=== PATIENT | male | born 1995 | race Caucasian/White ===

== ENCOUNTER 2020-09-01 16:44 | Inpatient (IN) | payer BC, SELFPAY ==
[2020-09-01 17:48] VITALS: BP 140/74; PULSE 129; RESP 28; TEMP 39.4; O2SAT 86; BMI 48.0
--- NOTE | 2020-09-01 18:03 | XRR_ITS ---
PROCEDURE INFORMATION: Exam: XR Chest Exam date and time: 09/01/2020 6:03 PM Age: 24 years old Clinical indication: Shortness of breath; Additional info: SOB TECHNIQUE: Imaging protocol: XR of the chest. Views: 1 view. Total images: 1 COMPARISON: No relevant prior studies available. FINDINGS: Lungs: Poor inspiratory effort. Bilateral mixed ground-glass interstitial and early consolidated alveolar airspace disease of active pneumonitis/pneumonia. Pleural spaces: Unremarkable. No pleural effusion. No pneumothorax. Heart/Mediastinum: Cardiac structures and configuration unremarkable. Bones/joints: Unremarkable. Other findings: Obesity. XR/XR chest 1V portable [id number] IMPRESSION: Bilateral pneumonitis/pneumonia.
[2020-09-01 18:59] LABS: ABG PCO2 31.3 mmHg (35-45); ABG PH Result 7.48 (7.35-7.45); Arterial Blood Gas Hematocrit 45.7 % (42-52); Base Excess ABG 0.9 mmol/L (-2.0-2.0); Blood Gas Allen Test Pos; Blood Gas Operator Identificat AMH; Blood Gas Sample Site Radial, left; Blood Gas Sample Type Arterial; HCO3 ABG 23.5 mmol/L (22-26); Oxygen Device NC; PO2 ABG 65.8 mmHg (80.0-100.0)
[2020-09-01 20:17] VITALS: BP 136/79; PULSE 126; RESP 24; O2SAT 95
[2020-09-01 20:20] VITALS: O2SAT 95
[2020-09-01 20:32] LABS: Basophils % 0.1 %; Hematocrit 44.5 % (42.0-52.0); Hemoglobin 14.7 g/dL (11.7-16.6); Lymphocytes # 1.3 10^3/uL (0.8-4.8); Lymphocytes % 13.8 %; Mean Corpuscular Hemoglobin 29.7 pg (28.0-34.0); Mean Corpuscular Volume 89.9 fL (80-94); Mean Platelet Volume 10.1 fL (7.4-10.4); Monocytes # 0.3 10^3/uL (0.2-0.9); Monocytes % 3.5 %; Neutrophils # 7.42 10^3/uL (1.8-7.7); Neutrophils % 82.3 %; Nucleated Red Blood Cells % 0 %; Platelet Count 300 10^3/cmm (130-400); Red Blood Count 4.95 10^6/uL (4.1-5.3); Red Cell Distribution Width 12.3 % (12.1-15.1)
[2020-09-01 20:48] LABS: Alanine Aminotransferase 47 U/L (0-41); Alkaline Phosphatase 35 IU/L (40-130); Anion Gap 16.9 (5-19); Aspartate Amino Transferase 53 U/L (0-40); Blood Urea Nitrogen 8 mg/dL (6-20); C Reactive Protein 32.2 mg/L (0.0-4.9); Carbon Dioxide 24 mmol/L (22-29); Chloride 99 mmol/L (98-107); Globulin 2.4 g/dL (1.3-4.6); Glomerular Filtration Rate 105.5 mL/min (90-130); Glucose 105 mg/dL (65-115); Lactic Sepsis W/Reflex 1.3 mmol/L (0.5-2.2); Osmolality Calculated 281 mOsm/kg (285-295); Potassium 3.9 mmol/L (3.5-5.1); Sodium 136 mmol/L (136-145); Total Bilirubin 0.3 mg/dL (0.15-1.2); Total Protein 6.4 g/dL (6.6-8.7)
[2020-09-01 20:51] LABS: Creatine Phosphokinase 1343 U/L (39-308)
[2020-09-01 20:54] LABS: Procalcitonin 0.47 ng/mL (0-0.5)
[2020-09-01 21:16] LABS: Influenza A by IFA Negative (Negative); Influenza B by IFA Negative (Negative)
[2020-09-01 21:16] LABS: SARS Covid-2 Antigen Negative (Negative)
[2020-09-01 22:31] VITALS: BP 147/76; PULSE 123; RESP 22; O2SAT 94
[2020-09-01] MEDS: acetaminophen 325 mg Tablet 650 MG PO (22:44)
[2020-09-01] MEDS: dexamethasone 4 mg/mL INJ 6 MG IVP (22:45)
[2020-09-01] MEDS: sodium chloride 0.9% 1,000 ML 999 ML IV (22:57)
--- NOTE | 2020-09-01 23:54 | ED_ITS ---
HPI - COVID General: Chief Complaint: COVID symptoms Stated Complaint: COVID EXPOSURE:COUGH, DIFF BREATHING Time Seen by Provider: 09/01/20 17:54 Source: patient Mode of arrival: ambulatory Limitations: no limitations Triage information: Has fever, cough or shortness of breath . Exposure to COVID + person last 14 days History of Present Illness: HPI Narrative: Symptoms have been ongoing for about 6 days. Mother has Covid. Patient states that his been having fevers, body aches, and progressively worsening shortness of breath over the last 6 days. He has some nausea but no vomiting. He has lost his appetite. He has been taking [id number] medication but is not getting any better. MD complaint: reported COVID exposure Prior covid testing: no COVID 19 common symptoms: positive fever(s), chills, cough, dyspnea, fatigue, body aches, headache(s), nasal congestion and nausea; negative vomiting COVID 19 other sytmptoms: positive requiring oxygen and lethargy; negative chest pain, pleuritic pain, requiring more oxygen, respiratory distress, cyanosis, confusion or new neurological complaints Onset (ago): day(s) (6) Severity: severe COVID Results: SARS-CoV-2 Antigen (Rapid) Negative (Negative) 09/01/20 20:00 09/01/20 SARS-CoV-2 RNA (RT-PCR) Pending 09/01/20 20:00 09/01/20 Review of Systems General: Reports: 10 or more systems reviewed and unremarkable except in HPI and below Const: Reports: fever(s), chills, body aches and fatigue ENMT: Reports: nasal congestion Card: Denies: chest pain Resp: Reports: dyspnea GI: Reports: nausea; Denies: vomiting Neuro: Reports: headache(s); Denies: confusion PFSH ED PFSH: Medical History (Reviewed 09/02/20 @ 13:24 by Preethi Leo MD, [facility] [place]) Obesity, Class III, BMI 40-49.9 (morbid obesity) Family History (Reviewed 09/02/20 @ 13:24 by Preethi Leo MD, [facility] [place]) Other COVID-19 Social History (Reviewed 09/02/20 @ 13:24 by Preethi Leo MD, [facility] [place]) Smoking and tobacco status: never smoked Alcohol intake: never Substance/Drug Use: never Household members: family Physical Exam Const: COMMON NORMALS: no acute distress, average body habitus, patient oriented x3, no limitations, healthy appearing, alert and well nourished HENMT: COMMON NORMALS: normocephalic, atraumatic and moist oral mucous membranes HEAD & SCALP: normocephalic and atraumatic Neck/C-Spine: COMMON NORMALS: no meningeal signs and no JVD Resp: COMMON NORMALS: No retractions, No use of accessory muscles, clear to auscultation bilaterally and percussion normal EFFORT & INSPECTION: Yes tachypneic and Yes labored AUSCULTATION: clear to auscultation bilaterally PERCUSSION: percussion normal Cardio: COMMON NORMALS: no JVD, regular rate, regular rhythm, S1 normal heart sound present, S2 normal heart sound present, No gallops present (Cardio), No clicks present (Cardio), No murmurs present (Cardio), No rub (Cardio) and Peripheral pulses 2+ throughout RATE: regular rate RHYTHM: regular rhythm HEART SOUNDS: S1 normal heart sound present and S2 normal heart sound present PERIPHERAL PULSES: Peripheral pulses 2+ throughout GI: COMMON NORMALS: Normal to inspection, nondistended, normoactive bowel sounds present, Soft to palpation, non-tender, No hepatosplenomegaly present, no masses and no bruits PALPATION: Yes Soft to palpation and Yes No hepatosplenomegaly present Extremity: COMMON NORMALS: normal to inspection, full ROM, capillary refill normal, no calf tenderness and no pedal edema Neuro: COMMON NORMALS: patient oriented x3 SENSORIUM/ORIENTATION: Yes alert MENINGEAL SIGNS: Yes no meningeal signs Skin: COMMON NORMALS: no rashes or lesions noted, no wounds, turgor normal, no jaundice, no petechiae and no mottling GENERAL SKIN EXAM: no rashes or lesions noted and turgor normal Course Consultations: Consultation #1: Discussed the patient with Dr. Kam, hospitalist and she kindly accepted the patient to her service. Time: 23:00 Vital Signs: Vital signs: Vital Signs Temperature 97.6 F 09/02/20 08:00 Pulse Rate 108 H 09/02/20 10:00 Respiratory Rate 22 H 09/02/20 09:47 Blood Pressure 153/96 09/02/20 10:00 Pulse Oximetry 91 07/11/21 10:00 MDM - COVID MDM Narrative: Medical decision making narrative: This 24-year-old male had a Covid exposure and has been feeling unwell for about 6 days in the emergency department he was hypoxic with oxygen saturation about 86% on room air and required oxygen at 3 L/min to maintain his saturations. Chest x-ray shows diffuse bilateral opacities consistent with COVID-19 pneumonia. Laboratory values also suggestive of Covid, however his rapid Covid test was negative. Clinically I believe this patient has Covid and so he will be managed as such. There is a high prevalence of the infection in the community. He will be started on remdesivir and dexamethasone and admitted to the cardiac stepdown unit for further evaluation and management. Medical Records: Attestation: I reviewed the patient's medical records. Lab Data: Attestation: I reviewed the patient's lab results. Labs: Lab Results 09/01/20 09/01/20 09/01/20 Range/Units 18:47 20:00 20:00 WBC (4.0-10.0) 10^3/ uL RBC (4.1-5.3) 10^6/u L Hgb (11.7-16.6) g/dL Hct (42.0-52.0) % MCV (80-94) fL MCH (28.0-34.0) pg MCHC (30.0-36.0) g/dL RDW (12.1-15.1) % Plt Count (130-400) 10^3/c mm MPV (7.4-10.4) fL Neut % (Auto) % Lymph % (Auto) % [place] % (Auto) % Eos % (Auto) % Baso % (Auto) % Neut # (Auto) (1.8-7.7) 10^3/u L Lymph # (Auto) (0.8-4.8) 10^3/u L [place] # (Auto) (0.2-0.9) 10^3/u L Eos # (Auto) (0.0-0.8) 10^3/u L Baso # (Auto) (0.0-0.1) 10^3/u L Nucleated RBC % (a uto) % Nucleated RBCs # /100WBC D-Dimer 0.70 H (0-0.59) ug/mIFE U Specimen Type Arterial Sample Site Radial, left ABG pH 7.48 H (7.35-7.45) ABG pCO2 31.3 L (35-45) mmHg ABG pO2 65.8 L (80.0-100.0) mmH g ABG HCO3 23.5 (22-26) mmol/L ABG Base Excess 0.9 (-2.0-2.0) mmol/ L Gabo Test Pos Hematocrit 45.7 (42-52) % O2 Delivery Device Nc O2 Liters/Min 2.0 % FiO2 28.0 % Bobbin Loose End Finder ID Amh Sodium 136 (136-145) mmol/L Potassium 3.9 (3.5-5.1) mmol/L Chloride 99 (98-107) mmol/L Carbon Dioxide 24 (22-29) mmol/L Anion Gap 16.9 (5-19) BUN 8 (6-20) mg/dL Creatinine 0.9 (0.7-1.2) mg/dL GFR Calculation 105.5 (90-130) mL/min Glucose 105 (65-115) mg/dL Calculated Osmolal ity 281 L (285-295) mOsm/k g Lactic Acid (0.5-2.2) mmol/L Calcium 8.0 L (8.5-10.5) mg/dL Ferritin (30-400) ng/mL Total Bilirubin 0.3 (0.15-1.2) mg/dL AST 53 H (0-40) U/L ALT 47 H (0-41) U/L Alkaline Phosphata se 35 L (40-130) IU/L Lactate Dehydrogen ase (135-225) U/L Creatine Kinase 1343 H* (39-308) U/L C-Reactive Protein 32.2 H (0.0-4.9) mg/L Total Protein 6.4 L (6.6-8.7) g/dL Albumin 4.0 (3.5-5.2) g/dL Globulin 2.4 (1.3-4.6) g/dL Procalcitonin 0.47 (0-0.5) ng/mL Nasal/Oral COVID-1 9 PCR Influenza Type A A g (Negative) Influenza Type B A g (Negative) SARS-CoV-2 Ag (Rap id) (Negative) 09/01/20 09/01/20 09/01/20 Range/Units 20:00 20:00 20:00 WBC 9.0 (4.0-10.0) 10^3/ uL RBC 4.95 (4.1-5.3) 10^6/u L Hgb 14.7 (11.7-16.6) g/dL Hct 44.5 (42.0-52.0) % MCV 89.9 (80-94) fL MCH 29.7 (28.0-34.0) pg MCHC 33.0 (30.0-36.0) g/dL RDW 12.3 (12.1-15.1) % Plt Count 300 (130-400) 10^3/c mm MPV 10.1 (7.4-10.4) fL Neut % (Auto) 82.3 % Lymph % (Auto) 13.8 % [place] % (Auto) 3.5 % Eos % (Auto) 0.0 % Baso % (Auto) 0.1 % Neut # (Auto) 7.42 (1.8-7.7) 10^3/u L Lymph # (Auto) 1.3 (0.8-4.8) 10^3/u L [place] # (Auto) 0.3 (0.2-0.9) 10^3/u L Eos # (Auto) 0.0 (0.0-0.8) 10^3/u L Baso # (Auto) 0.0 (0.0-0.1) 10^3/u L Nucleated RBC % (a uto) 0 % Nucleated RBCs # 0.0 /100WBC D-Dimer (0-0.59) ug/mIFE U Specimen Type Sample Site ABG pH (7.35-7.45) ABG pCO2 (35-45) mmHg ABG pO2 (80.0-100.0) mmH g ABG HCO3 (22-26) mmol/L ABG Base Excess (-2.0-2.0) mmol/ L Gabo Test Hematocrit (42-52) % O2 Delivery Device O2 Liters/Min % FiO2 % Bobbin Loose End Finder ID Sodium (136-145) mmol/L Potassium (3.5-5.1) mmol/L Chloride (98-107) mmol/L Carbon Dioxide (22-29) mmol/L Anion Gap (5-19) BUN (6-20) mg/dL Creatinine (0.7-1.2) mg/dL GFR Calculation (90-130) mL/min Glucose (65-115) mg/dL Calculated Osmolal ity (285-295) mOsm/k g Lactic Acid 1.3 (0.5-2.2) mmol/L Calcium (8.5-10.5) mg/dL Ferritin (30-400) ng/mL Total Bilirubin (0.15-1.2) mg/dL AST (0-40) U/L ALT (0-41) U/L Alkaline Phosphata se (40-130) IU/L Lactate Dehydrogen ase (135-225) U/L Creatine Kinase (39-308) U/L C-Reactive Protein (0.0-4.9) mg/L Total Protein (6.6-8.7) g/dL Albumin (3.5-5.2) g/dL Globulin (1.3-4.6) g/dL Procalcitonin (0-0.5) ng/mL Nasal/Oral COVID-1 9 PCR Cancelled Influenza Type A A g (Negative) Influenza Type B A g (Negative) SARS-CoV-2 Ag (Rap id) (Negative) 09/01/20 09/01/20 09/01/20 Range/Units 20:00 20:00 20:15 WBC (4.0-10.0) 10^3/ uL RBC (4.1-5.3) 10^6/u L Hgb (11.7-16.6) g/dL Hct (42.0-52.0) % MCV (80-94) fL MCH (28.0-34.0) pg MCHC (30.0-36.0) g/dL RDW (12.1-15.1) % Plt Count (130-400) 10^3/c mm MPV (7.4-10.4) fL Neut % (Auto) % Lymph % (Auto) % [place] % (Auto) % Eos % (Auto) % Baso % (Auto) % Neut # (Auto) (1.8-7.7) 10^3/u L Lymph # (Auto) (0.8-4.8) 10^3/u L [place] # (Auto) (0.2-0.9) 10^3/u L Eos # (Auto) (0.0-0.8) 10^3/u L Baso # (Auto) (0.0-0.1) 10^3/u L Nucleated RBC % (a uto) % Nucleated RBCs # /100WBC D-Dimer (0-0.59) ug/mIFE U Specimen Type Sample Site ABG pH (7.35-7.45) ABG pCO2 (35-45) mmHg ABG pO2 (80.0-100.0) mmH g ABG HCO3 (22-26) mmol/L ABG Base Excess (-2.0-2.0) mmol/ L Gabo Test Hematocrit (42-52) % O2 Delivery Device O2 Liters/Min % FiO2 % Bobbin Loose End Finder ID Sodium (136-145) mmol/L Potassium (3.5-5.1) mmol/L Chloride (98-107) mmol/L Carbon Dioxide (22-29) mmol/L Anion Gap (5-19) BUN (6-20) mg/dL Creatinine (0.7-1.2) mg/dL GFR Calculation (90-130) mL/min Glucose (65-115) mg/dL Calculated Osmolal ity (285-295) mOsm/k g Lactic Acid (0.5-2.2) mmol/L Calcium (8.5-10.5) mg/dL Ferritin 1293 H (30-400) ng/mL Total Bilirubin (0.15-1.2) mg/dL AST (0-40) U/L ALT (0-41) U/L Alkaline Phosphata se (40-130) IU/L Lactate Dehydrogen ase 698 H (135-225) U/L Creatine Kinase (39-308) U/L C-Reactive Protein (0.0-4.9) mg/L Total Protein (6.6-8.7) g/dL Albumin (3.5-5.2) g/dL Globulin (1.3-4.6) g/dL Procalcitonin (0-0.5) ng/mL Nasal/Oral COVID-1 9 PCR Influenza Type A A g Negative (Negative) Influenza Type B A g Negative (Negative) SARS-CoV-2 Ag (Rap id) Negative (Negative) Imaging Data: CXR: Attestation: I personally reviewed and interpreted this imaging study as follows: Radiologist's impression: [address] [id number] ReportSigned Patient: Raquel Crouch #: [id number]: [id number]#:[id number]/Sex: 24 / MADM Date: 09/01/20Loc: ERRoom/Bed:Attending Dr: Ordering Provider/Ordering MD: Preethi Leo MD, [facility] [place] Date of Service: 09/01/20 Procedure(s): XR chest 1V portable [id number] Accession Number(s): [id number] Report Number: [id number] PROCEDURE INFORMATION: Exam: XR Chest Exam date and time: 09/01/2020 6:03 PM Age: 24 years old Clinical indication: Shortness of breath; Additional info: SOB TECHNIQUE: Imaging protocol: XR of the chest. Views: 1 view. Total images: 1 COMPARISON: No relevant prior studies available. FINDINGS: Lungs: Poor inspiratory effort. Bilateral mixed ground-glass interstitial and early consolidated alveolar airspace disease of active pneumonitis/pneumonia. Pleural spaces: Unremarkable. No pleural effusion. No pneumothorax. Heart/Mediastinum: Cardiac structures and configuration unremarkable. Bones/joints: Unremarkable. Other findings: Obesity. XR/XR chest 1V portable [id number] IMPRESSION: Bilateral pneumonitis/pneumonia. 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
[2020-09-02] VITALS (65 sets, daily range): BP systolic 120–168; BP diastolic 67–120; PULSE 90–130; RESP 17–26; TEMP 36.4–37.8; O2SAT 86–95
[2020-09-02 00:16] LABS: Lactate Dehydrogenase 698 U/L (135-225)
[2020-09-02] MEDS: remdesivir 200 MG in sodium chloride 0.9% (100 ml) 100 ML 100 MG IV (00:18)
[2020-09-02 00:53] LABS: Ferritin 1293 ng/mL (30-400)
--- NOTE | 2020-09-02 04:04 | PM.HP ---
Providers/Chief Complaint Admitting Physician: Makeda Kam MD Primary Care Provider: Sydnie Farrell MD Chief Complaint: COVID EXPOSURE:COUGH, DIFF BREATHING History of Present Illness Paul Crouch is a 24 year old male who presented to the emergency room with chief complaint of increasing difficulty breathing and cough. His mom had been positive for Covid. He started having fevers up to as high as 103.8 around 6 days ago. He then began having upper respiratory congestion followed by chest congestion and frequent cough. He began to get short of breath with exertion a couple of days ago and then symptoms progressed. He denies loss of taste or smell. He has had general malaise. No vomiting or diarrhea. No chest pain. He has a BMI of 46 but no other risk factors for severe disease. He did not have Covid last year. He did not get vaccinated. Review of Systems Const: Reports: fever(s), chills, body aches, fatigue and malaise Eyes: Denies: change in vision ENMT: Reports: throat pain and nasal congestion Card: Denies: chest pain, palpitations or edema Resp: Reports: dyspnea, productive cough and non-productive cough GI: Denies: abdominal pain, nausea, vomiting, diarrhea or constipation : Denies: difficulty urinating Musc: Denies: joint swelling or joint redness Skin/Breast: Denies: rash or sores Neuro: Reports: headache(s); Denies: numbness in extremities, weakness in extremities or difficulty walking Medications/Allergies Home Medications Medication Instructions Recorded Confirmed Last Taken Type No Known Home Medications 09/02/20 09/02/20 Unknown History Allergies Allergy/AdvReac Type Severity Reaction Status Date / Time No Known Allergies Allergy Verified 09/01/20 17:52 PFSH Acute PFSH: Medical History (Updated 09/02/20 @ 08:44 by Makeda Kam MD) Obesity, Class III, BMI 40-49.9 (morbid obesity) Family History (Updated 09/02/20 @ 08:35 by Makeda Kam MD) Other COVID-19 Social History (Updated 09/02/20 @ 08:35 by Makeda Kam MD) Smoking and tobacco status: never smoked Alcohol intake: never Substance/Drug Use: never Household members: family Supplemental PFSH Information: No surgical history Vitals/I&O/Wt Last Vital Signs Temp 100.1 F H 09/02/20 03:25 Pulse 96 09/02/20 03:41 Resp 18 09/02/20 02:05 BP 155/81 09/02/20 03:41 Pulse Ox 94 09/02/20 03:41 09/01/20 09/01/20 09/02/20 14:59 22:59 06:59 Intake Total 1100 / 1100 Balance 1100 / 1100 Weight last 48 hrs Weight 148.325 kg Weight 151.953 kg Physical Exam Narrative: EXAM NARRATIVE: Constitutional: Awake and alert, looks like he does not feel well but not as ill-appearing as his labs might suggest HEENT: Normocephalic, atraumatic, pupils are equal, extraocular movements are intact, nasopharynx with some clear rhinorrhea, mucous membranes dry Neck: Large but supple Respiratory: Scattered wheezes and rhonchi Cardiovascular: Tachycardic, regular Abdomen: Soft, nontender Extremities: No pitting edema or cyanosis Skin: No rashes noted Neuro: Speech clear, face symmetric, moves all extremities Psych: Normal affect Data : 09/02/20 04:38 09/02/20 04:38 Micro: Microbiology 09/01/20 20:00 Blood Culture - Preliminary Blood SPECIMEN COLLECTED 09/01/20 20:05 Blood Culture - Preliminary Blood SPECIMEN COLLECTED Other data: Impressions Chest X-Ray 09/01/20 18:03 IMPRESSION: Bilateral pneumonitis/pneumonia. Laboratory Tests 09/01/20 09/01/20 09/01/20 18:47 20:00 20:00 D-Dimer 0.70 H ABG pH 7.48 H ABG pCO2 31.3 L ABG pO2 65.8 L FiO2 28.0 BUN 8 Creatinine 0.9 Glucose 105 Lactic Acid 1.3 Ferritin 1239 H Total Bilirubin 0.3 AST 53 H ALT 47 H Alkaline Phosphatase 35 L Lactate Dehydrogenase 698 H Creatine Kinase 1343 H* C-Reactive Protein 32.2 H Procalcitonin 0.47 A&P Assessment and plan (1) Pneumonia due to COVID-19 virus: With hypoxemia requiring oxygen therapy, mild elevation in D-dimer, elevation in ferritin, transaminases, LDH, CK, CRP, normal procalcitonin. Rapid Covid antigen is negative but imaging and laboratory studies are consistent as his clinical diagnosis in the setting of his mother, with whom he lives, having active Covid. Status: Acute (2) Obesity, Class III, BMI 40-49.9 (morbid obesity): Status: Chronic Additional A&P Information Inpatient admission Dexamethasone Remdesivir Covid PCR was sent Breathing treatments Oxygen as needed Blood cultures were collected Procalcitonin was normal Low-grade IV fluids x1 L secondary to elevation in CK Vitamin C, vitamin D, zinc Lovenox for DVT prophylaxis PPI Check hemoglobin A1c, monitor blood sugars with steroids Supportive care otherwise Currently anticipate discharge home though will ultimately depend on clinical course Findings, concerns and plans were discussed with patient and he was given an opportunity to ask questions Full code Attestations Medical Necessity Statement*: Anticipated stay greater than 2 midnights in this gentleman with clinical diagnosis of COVID-19 requiring oxygen therapy and with multiple markers of systemic inflammation of concern for potential to have continued disease progression Coding Level of Care Code Acute Margarine Churn Operator for [facility] Fwd Diagnoses Pneumonia due to COVID-19 virus U07.1; J12.82 Obesity, Class III, BMI 40-49.9 (morbid obesity) E66.01
[2020-09-02 05:01] LABS: Hematocrit 41.5 % (42.0-52.0); Hemoglobin 13.9 g/dL (11.7-16.6); Lymphocytes # 0.9 10^3/uL (0.8-4.8); Lymphocytes % 12.4 %; Mean Corpuscular HGB Conc 33.5 g/dL (30.0-36.0); Mean Corpuscular Hemoglobin 29.7 pg (28.0-34.0); Mean Corpuscular Volume 88.7 fL (80-94); Mean Platelet Volume 10.1 fL (7.4-10.4); Monocytes # 0.2 10^3/uL (0.2-0.9); Monocytes % 2.6 %; Neutrophils # 6.42 10^3/uL (1.8-7.7); Neutrophils % 84.5 %; Nucleated Red Blood Cells % 0 %; Platelet Count 309 10^3/cmm (130-400); Red Blood Count 4.68 10^6/uL (4.1-5.3); Red Cell Distribution Width 12.5 % (12.1-15.1); White Blood Count 7.6 10^3/uL (4.0-10.0)
[2020-09-02 05:15] LABS: Anion Gap 17.7 (5-19); Blood Urea Nitrogen 10 mg/dL (6-20); Calcium 7.8 mg/dL (8.5-10.5); Carbon Dioxide 23 mmol/L (22-29); Chloride 100 mmol/L (98-107); Glomerular Filtration Rate 120.9 mL/min (90-130); Glucose 151 mg/dL (65-115); Osmolality Calculated 286 mOsm/kg (285-295); Potassium 3.7 mmol/L (3.5-5.1); Sodium 137 mmol/L (136-145)
[2020-09-02] MEDS: remdesivir 100 MG in sodium chloride 0.9% (100 ml) 100 ML IV (06:07)
[2020-09-02 08:09] LABS: Fibrinogen 522 mg/dL (174-498)
[2020-09-02] MEDS: sodium chloride 0.9% 1,000 ML 75 ML IV (08:55)
[2020-09-02] MEDS: ascorbic acid 500 mg Tablet PO ×2 (08:56→16:59)
[2020-09-02] MEDS: cholecalciferol (vitamin D3) 1,000 unit Tablet 2000 UNIT PO (08:56)
[2020-09-02] MEDS: enoxaparin 40 mg/0.4 mL Syringe SUBCUT (08:56)
[2020-09-02] MEDS: pantoprazole DR 40 mg Tablet PO (08:57)
[2020-09-02] MEDS: zinc gluconate 50 mg Tablet PO (09:01)
[2020-09-02] MEDS: albuterol 8 gm MDI 2 PUFF INHALATION ×2 (09:47→21:09)
[2020-09-02 12:19] LABS: Glucose Point of Care 150 mg/dL (70-110)
--- NOTE | 2020-09-02 16:26 | PM.PN ---
Subjective Subjective: Interval history: 24 year old male who presented to the emergency room with chief complaint of increasing difficulty breathing and cough. His mom had been positive for Covid. He started having fevers up to as high as 103.8 around 6 days ago. He then began having upper respiratory congestion followed by chest congestion and frequent cough. He began to get short of breath with exertion a couple of days ago and then symptoms progressed. He denies loss of taste or smell. He has had general malaise. No vomiting or diarrhea. No chest pain. He has a BMI of 46 but no other risk factors for severe disease. He did not have Covid last year. He did not get vaccinated.Laboratory workup arrival showed a WBC of 9.0 hemoglobin of 14.7, hematocrit of 44.5 and platelet count of 300. D-dimer 0.70. PH of 7.48, pCO2 of 31.3, PO2 of 65.8 and bicarb of 23.5. Sodium 136, potassium 3.9, chloride 99, bicarb 24, BUN 8 and creatinine of 0.9 ferritin of 1293, AST of 53, ALT of 47, alkaline phosphatase 35, lactate dehydrogenase of 698, creatinine kinase of 1343, CRP of 32.2. Influenza a, B were negative. COVID-19 antigen was negative, PCR was sent however pending. Chest x-ray performed showed bilateral pneumonitis /pneumonia. Of note patient did deny any tobacco or vaping history.Vital signs on arrival showed a blood pressure of 160/120 -unclear if this is accurate, temperature of 98.7, heart rate of 127, respiratory rate of 20 and O2 saturation of 86% on room air. Upon admission patient was started on albuterol Q for p.r.n., Decadron 6 mg IV daily, and remdesivir. 09/02/20 Stable since admission Medications: Reviewed: Yes Vitals/I&O/Wt Last Vital Signs Temp 98.7 F 09/02/20 13:45 Pulse 115 H 09/02/20 14:00 Resp 20 H 09/02/20 13:45 BP 160/120 09/02/20 14:00 Pulse Ox 90 09/02/20 14:00 09/02/20 09/02/20 09/02/20 06:59 14:59 22:59 Intake Total 1100 / 1100 600 / 600 Balance 1100 / 1100 600 / 600 Weight last 48 hrs Weight 148.325 kg Weight 151.953 kg Physical Exam Narrative: EXAM NARRATIVE: General- morbidly obese male, no apparent distress HEENT -grossly unremarkable CVS- sinus tachycardia Chest- coarse breath sounds bilaterally Abdomen-soft contender nondistended Extremities-no significant edema noted Data : 09/02/20 04:38 09/02/20 04:38 Micro: Microbiology 09/01/20 20:00 Blood Culture - Preliminary Blood SPECIMEN COLLECTED 09/01/20 20:05 Blood Culture - Preliminary Blood SPECIMEN COLLECTED A&P Assessment and plan (1) Hypoxia: Status: Acute (2) Rhabdomyolysis due to severe acute respiratory syndrome coronavirus 2 (SARS-CoV-2) disease: Status: Acute (3) Obesity, Class III, BMI 40-49.9 (morbid obesity): Status: Chronic (4) Bilateral pneumonia: Status: Acute Dyspnea with B/L pneumonia suspected COVID-19 COVID-19 Ag - Negative , PCR pending PH of 7.48, pCO2 of 31.3, PO2 of 65.8 and bicarb of 23.5. Ferritin 1293, CRP 32.2, LDH 698 Highly suspicious for COVID-19 infection Started on Remdesivir - last dose on 09/05 ZInc 50 mg PO daily Decadron 6 mg IV daily Follow up on COVID-19 PCR Droplet precautions May consider CTA Chest - d-dimer 0.70 Supplemental 02 as needed - wean as tolerate d Home o2 prior to d/c Acute mild rhabdomyolysis CPK of 1293 NS at 50 cc/hr overnight Repeat levels I am Cautious use of fluids Hypertension My consider adding antihypertensive Morbid Obesity BMI- 46.0 Diet and exercise regiemn after discharge. DVT ppx Lovenox 40 mg SQ daily Attestations Medical Necessity Statement*: Continue hospitalization for management of bilateral pneumonia suspected to be COVID-19 requiring IV treatment Time Spent in Patient Care: Greater than 35 minutes (>than 50% of time spent in counselling and/or direct pt care on unit). Coding Level of Care Code Acute [employer] Pcb Draftsman for [facility] Diagnoses Hypoxia R09.02 Rhabdomyolysis due to severe acute respiratory syndrome coronavirus 2 (SARS-CoV-2) disease U07.1; M62.82 Obesity, Class III, BMI 40-49.9 (morbid obesity) E66.01 Bilateral pneumonia J18.9
[2020-09-02 17:16] LABS: Glucose Point of Care 140 mg/dL (70-110)
[2020-09-02] MEDS: dexamethasone 4 mg/mL INJ 6 MG IVP (20:37)
[2020-09-02 22:22] LABS: Glucose Point of Care 138 mg/dL (70-110)
[2020-09-03] VITALS (49 sets, daily range): BP systolic 120–162; BP diastolic 73–92; PULSE 84–131; RESP 18–24; TEMP 36.4–37; O2SAT 86–97
--- NOTE | 2020-09-03 | CT_ITS ---
Paul Crouch 11 7 98 CTA OF THE CHEST WITH PULMONARY EMBOLISM PROTOCOL TECHNIQUE: High-resolution contrast enhanced CTA of the chest with coronal and sagittal reformatted images with pulmonary embolism protocol. MIP images are also reviewed. CLINICAL INFORMATION: Possible CoVID, shortness of breath COMPARISON: None. DLP: All CT scans at [facility] use at least one of these dose optimization techniques: automated exposure control; mA and/or kV adjustment per patient size (includes targeted exams where dose is matched to clinical indication); or iterative reconstruction. FINDINGS: Limited examination due to body habitus Proximal main pulmonary arteries are normal. Segmental and subsegmental pulmonary arteries are not well evaluated due to body habitus. No evidence of proximal pulmonary embolus. Normal caliber thoracic aorta. Bilateral perihilar and upper lobe groundglass infiltrates suspicious for COVID19 pneumonia. Additional groundglass infiltrates in the lower lobes bilaterally. No mediastinal or hilar lymphadenopathy. No axillary lymphadenopathy. Hepatomegaly with diffuse fatty infiltration of the liver. IMPRESSION: 1. Limited evaluation of the pulmonary arteries due to body habitus. No evidence of proximal pulmonary embolus. 2. Bilateral hazy groundglass perihilar infiltrates extending into the upper and lower lobes suspicious for COVID19 pneumonia 3. Hepatomegaly with diffuse fatty infiltration of the liver MTDD
[2020-09-03] MEDS: sodium chloride 0.9% 1,000 ML 50 ML IV ×2 (00:48→16:37)
[2020-09-03] MEDS: remdesivir 100 MG in sodium chloride 0.9% (100 ml) 100 ML IV (05:50)
[2020-09-03 06:55] LABS: Glucose Point of Care 158 mg/dL (70-110)
[2020-09-03 07:09] LABS: Basophils % 0.1 %; Hemoglobin 13.6 g/dL (11.7-16.6); Lymphocytes # 1.2 10^3/uL (0.8-4.8); Lymphocytes % 12.5 %; Mean Corpuscular HGB Conc 32.4 g/dL (30.0-36.0); Mean Corpuscular Hemoglobin 29.2 pg (28.0-34.0); Mean Corpuscular Volume 90.3 fL (80-94); Mean Platelet Volume 9.9 fL (7.4-10.4); Monocytes # 0.6 10^3/uL (0.2-0.9); Monocytes % 6.1 %; Neutrophils # 7.41 10^3/uL (1.8-7.7); Neutrophils % 80.2 %; Nucleated Red Blood Cells % 0.2 %; Platelet Count 414 10^3/cmm (130-400); Red Blood Count 4.65 10^6/uL (4.1-5.3); Red Cell Distribution Width 12.6 % (12.1-15.1); White Blood Count 9.2 10^3/uL (4.0-10.0)
[2020-09-03 07:19] LABS: Partial Thromboplastin Time 29.6 SECONDS (23.9-36.7)
[2020-09-03 07:22] LABS: Estmated Average Glucose 117; Hemoglobin A1C 5.7 % (4.0-6.0)
[2020-09-03 07:30] LABS: Alanine Aminotransferase 37 U/L (0-41); Albumin Level 3.4 g/dL (3.5-5.2); Alkaline Phosphatase 31 IU/L (40-130); Anion Gap 17.8 (5-19); Aspartate Amino Transferase 37 U/L (0-40); Blood Urea Nitrogen 12 mg/dL (6-20); Carbon Dioxide 22 mmol/L (22-29); Chloride 104 mmol/L (98-107); Globulin 3.4 g/dL (1.3-4.6); Glucose 172 mg/dL (65-115); Magnesium 2.5 mg/dL (1.7-2.3); Osmolality Calculated 294 mOsm/kg (285-295); Phosphorus 3.5 mg/dL (2.5-4.5); Potassium 3.8 mmol/L (3.5-5.1); Sodium 140 mmol/L (136-145); Total Bilirubin 0.3 mg/dL (0.15-1.2); Total Protein 6.8 g/dL (6.6-8.7)
[2020-09-03 07:46] LABS: Creatine Phosphokinase 819 U/L (39-308)
[2020-09-03 07:47] LABS: Ferritin 1221 ng/mL (30-400)
[2020-09-03] MEDS: albuterol 8 gm MDI 2 PUFF INHALATION ×2 (08:04→20:02)
--- NOTE | 2020-09-03 08:33 | PM.PN ---
Subjective Subjective: Interval history: Hospital course, labs appreciated. Today morning sitting up in bed. Requiring 6 L oxygen supplementation states feeling okay. Denies any nausea vomiting, headache. States appetite is appropriate. Medications: Reviewed: Yes Vitals/I&O/Wt Last Vital Signs Temp 97.6 F 09/03/20 04:00 Pulse 84 09/03/20 06:00 Resp 18 09/03/20 04:00 BP 130/78 09/03/20 04:00 Pulse Ox 93 09/03/20 04:00 09/02/20 09/03/20 09/03/20 22:59 06:59 14:59 Intake Total 1000 / 1600 100 / 100 Balance 1000 / 1600 100 / 100 Weight last 48 hrs Weight 148.325 kg Weight 151.953 kg Physical Exam Narrative: EXAM NARRATIVE: General- morbidly obese male, no apparent distress HEENT -grossly unremarkable CVS-S1-S2 regular, no murmur, tachycardia Chest- c bilateral coarse crepitations, bilateral rhonchi diffuse all over lung murguia Abdomen-soft contender nondistended Extremities-no significant edema noted Data : 09/03/20 06:53 09/03/20 06:53 Micro: Microbiology 09/01/20 20:00 Blood Culture - Preliminary Blood NEGATIVE TO DATE 09/01/20 20:05 Blood Culture - Preliminary Blood NEGATIVE TO DATE A&P Assessment and plan (1) Hypoxia: Status: Acute (2) Rhabdomyolysis due to severe acute respiratory syndrome coronavirus 2 (SARS-CoV-2) disease: Status: Acute (3) Bilateral pneumonia: Status: Acute (4) Obesity, Class III, BMI 40-49.9 (morbid obesity): Status: Chronic Additional A&P Information Dyspnea with B/L pneumonia suspected COVID-19 COVID-19 Ag - Negative , PCR pending Due to high suspicion of COVID-19 pneumonia patient has been started on remdesivir. We will continue to finish 5-day course. Dexamethasone 6 mg IV daily. Vitamin C, zinc. Tessalon Perles. Pulmonary toilet with incentive spirometry and flutter valve. Check sputum culture, bacterial antigen, urine Legionella, procalcitonin, MRSA swab. Low suspicion for bacterial infection for now. Continue to follow and monitor inflammatory markers going forward. Advair, Spiriva. D-dimer elevated. Start patient on Eliquis 5 mg twice daily. Stop prophylactic dose Lovenox. Check CTA. If PCR comes back positive can plan for dose of Actemra as patient is requiring higher oxygen supplementation currently. Acute mild rhabdomyolysis Most likely secondary to COVID-19 pneumonia Continue with normal saline 50 cc/h. Hypertension Blood pressures have continued to remain elevated. Start patient on amlodipine 10 mg daily. Patient is having tachycardia as well most likely secondary to hypoxia. If continues to start on low-dose metoprolol as well. Morbid Obesity BMI- 46.0 Diet and exercise regiemn after discharge. Check HbA1c, lipid panel, TSH. Patient had a DVT prophylaxis. Regular diet. Insulin sliding scale as patient is on high dose steroids. Protonix for PUD prophylaxis Attestations Medical Necessity Statement*: Requires further hospitalization for management of COVID-19 pneumonia Time Spent in Patient Care: Greater than 35 minutes (>than 50% of time spent in counselling and/or direct pt care on unit). Coding Level of Care Code Acute Corporate Real Estate Specialist for [facility] Diagnoses Hypoxia R09.02 Rhabdomyolysis due to severe acute respiratory syndrome coronavirus 2 (SARS-CoV-2) disease U07.1; M62.82 Bilateral pneumonia J18.9 Obesity, Class III, BMI 40-49.9 (morbid obesity) E66.01
--- NOTE | 2020-09-03 09:00 | PC.NURSE ---
Pt sitting up in bed talking to staff. Resp even and non-labored no distress noted. No c/o pain or discomfort at the present time. Call light in reach.
[2020-09-03 09:09] LABS: NT Pro B Type Natriuretic Pept 65 pg/mL (0-125); Procalcitonin 0.36 ng/mL (0-0.5)
[2020-09-03 09:20] LABS: Iron 41 ug/dL (59-158); Percent Saturation 21.6 % (20-50); Total Iron Binding Capacity 189 mcg/dl; Unsaturated Iron Binding 148 ug/dL (112-347)
[2020-09-03] MEDS: ascorbic acid 500 mg Tablet 1000 MG PO ×2 (09:27→17:12)
[2020-09-03] MEDS: benzonatate 100 mg Capsule PO ×3 (09:27→20:21)
[2020-09-03] MEDS: zinc gluconate 50 mg Tablet PO (09:27)
[2020-09-03] MEDS: enoxaparin 40 mg/0.4 mL Syringe SUBCUT (09:28)
[2020-09-03] MEDS: pantoprazole DR 40 mg Tablet PO (09:28)
[2020-09-03] MEDS: cholecalciferol (vitamin D3) 1,000 unit Tablet 2000 UNIT PO (09:28)
[2020-09-03] MEDS: iohexol 350 mg/mL 100 mL Btl IV (10:49)
[2020-09-03 12:05] LABS: Glucose Point of Care 177 mg/dL (70-110)
--- NOTE | 2020-09-03 12:45 | DCPLANNER ---
Pt still on 10L 02, no d/c for 1-2 days.
[2020-09-03] MEDS: amlodipine 10 mg Tablet PO (16:37)
[2020-09-03 16:54] LABS: Glucose Point of Care 164 mg/dL (70-110)
[2020-09-03 17:45] LABS: Add Urine Microscopic? YES; Bilirubin Urine Neg (Negative); Blood Urine 2+ (Negative); Glucose Urine UA Norm (Normal); Ketones Urine 1+ (Negative); Leukocyte Esterase Urine Trace (Negative); Nitrate Urine Negative (Negative); Protein Urine 2+ (Negative); Urine Appearance Clear (CLEAR); Urine Color Yellow (Yellow); Urobilinogen Urine 1 mg/dL (Negative); pH Urine 6.5 (5-7)
[2020-09-03 17:47] LABS: Bacteria Urine TRACE /hpf; Mucus Urine 2+ /hpf; RBC Urine 0-4 /hpf (0-2); Squamous Epithelial Cell Urine 0-4 /hpf (0-5); WBC Urine 0-4 /hpf (0-5)
[2020-09-03 17:48] LABS: Add Urine Culture? No
[2020-09-03] MEDS: dexamethasone 4 mg/mL INJ 6 MG IVP (20:20)
[2020-09-03] MEDS: apixaban 5 mg Tablet PO (20:21)
[2020-09-03 20:58] LABS: Glucose Point of Care 147 mg/dL (70-110)
[2020-09-04] VITALS (61 sets, daily range): BP systolic 124–168; BP diastolic 71–94; PULSE 81–110; RESP 18–24; TEMP 36.6–37; O2SAT 88–96
[2020-09-04 03:57] LABS: Quest SARS-CoV-2 RNA DETECTED (NOT DETECTED)
[2020-09-04 05:41] LABS: Basophils % 0.1 %; Hematocrit 41.4 % (42.0-52.0); Hemoglobin 13.4 g/dL (11.7-16.6); Lymphocytes # 1.3 10^3/uL (0.8-4.8); Lymphocytes % 16.4 %; Mean Corpuscular HGB Conc 32.4 g/dL (30.0-36.0); Mean Corpuscular Hemoglobin 29.8 pg (28.0-34.0); Mean Corpuscular Volume 92.2 fL (80-94); Mean Platelet Volume 10.3 fL (7.4-10.4); Monocytes # 0.5 10^3/uL (0.2-0.9); Monocytes % 6.3 %; Neutrophils # 5.91 10^3/uL (1.8-7.7); Neutrophils % 75.9 %; Nucleated Red Blood Cells % 0 %; Platelet Count 490 10^3/cmm (130-400); Red Blood Count 4.49 10^6/uL (4.1-5.3); Red Cell Distribution Width 12.6 % (12.1-15.1); White Blood Count 7.8 10^3/uL (4.0-10.0)
[2020-09-04 05:48] LABS: Alanine Aminotransferase 34 U/L (0-41); Albumin Level 3.5 g/dL (3.5-5.2); Alkaline Phosphatase 30 IU/L (40-130); Anion Gap 17.2 (5-19); Aspartate Amino Transferase 30 U/L (0-40); Blood Urea Nitrogen 15 mg/dL (6-20); C Reactive Protein 8.6 mg/L (0.0-4.9); Calcium 8.6 mg/dL (8.5-10.5); Carbon Dioxide 25 mmol/L (22-29); Chloride 104 mmol/L (98-107); Chol HDL Ratio 3.92 mg/dL (1.0-5.00); Cholesterol 98 mg/dL (0-200); Ferritin 996 ng/mL (30-400); Glomerular Filtration Rate 168.5 mL/min (90-130); Glucose 158 mg/dL (65-115); HDL Cholesterol 25 mg/dL (60-100); LDL Cholesterol Calculated 59 mg/dL (50-129); NT Pro B Type Natriuretic Pept 82 pg/mL (0-125); Osmolality Calculated 298 mOsm/kg (285-295); Potassium 4.2 mmol/L (3.5-5.1); Sodium 142 mmol/L (136-145); Total Bilirubin 0.3 mg/dL (0.15-1.2); Total Protein 6.5 g/dL (6.6-8.7); Triglycerides 70 mg/dL (0-150); VLDL Cholestrol Calculation 14 mg/dL (0-30)
[2020-09-04] MEDS: remdesivir 100 MG in sodium chloride 0.9% (100 ml) 100 ML IV (05:48)
[2020-09-04 05:56] LABS: Slide Review Slide Review Perform
--- NOTE | 2020-09-04 06:00 | XRR_ITS ---
PROCEDURE INFORMATION: Exam: XR Chest Exam date and time: 09/04/2020 6:00 AM Age: 24 years old Clinical indication: Shortness of breath; Additional info: Covid + TECHNIQUE: Imaging protocol: XR of the chest. Views: 1 view. COMPARISON: CR (CHEST, ) 09/01/2020 6:15 PM FINDINGS: Lungs: Low lung volumes. Persistent bilateral airspace opacities. No large pleural effusion or pneumothorax. Pleural spaces: See Lungs finding. Heart/Mediastinum: Stable cardiomediastinal silhouette. Bones/joints: No acute osseous injury identified. XR/XR chest 1V portable [id number] IMPRESSION: Persistent bilateral airspace opacities.
[2020-09-04 06:06] LABS: Erythrocyte Sedimentation Rate 39 mm/hr (0-10)
[2020-09-04 06:32] LABS: Creatine Phosphokinase 406 U/L (39-308)
[2020-09-04 06:34] LABS: Glucose Point of Care 163 mg/dL (70-110)
[2020-09-04] MEDS: pantoprazole DR 40 mg Tablet PO (07:59)
[2020-09-04] MEDS: benzonatate 100 mg Capsule PO ×3 (07:59→20:03)
[2020-09-04] MEDS: apixaban 5 mg Tablet PO ×2 (08:00→20:03)
[2020-09-04] MEDS: amlodipine 10 mg Tablet PO (08:00)
[2020-09-04] MEDS: zinc gluconate 50 mg Tablet PO (08:00)
[2020-09-04] MEDS: ascorbic acid 500 mg Tablet 1000 MG PO ×2 (08:00→17:03)
[2020-09-04] MEDS: albuterol 8 gm MDI 2 PUFF INHALATION ×2 (09:15→20:23)
--- NOTE | 2020-09-04 10:30 | PC.NURSE ---
Pt resp even and non-labored no distress noted. Pt O2 sat 91 percent with nc at 3Lpm. Pt had no c/o pain or discomfort at the present time. No Needs voiced. Call light in reach.
[2020-09-04] MEDS: cholecalciferol (vitamin D3) 1,000 unit Tablet 2000 UNIT PO (10:58)
[2020-09-04 11:12] LABS: Glucose Point of Care 157 mg/dL (70-110)
--- NOTE | 2020-09-04 15:43 | P.PN_ITS ---
Subjective Subjective: Interval history: Documents overnight. Patient denies any nausea vomiting, headache. States he is feeling a lot better. Currently on 2 L nasal cannula saturating 92%. States appetite is better. On examination sitting up in chair. Walking around in the room. Working well with I-S and Acapella. Medications: Reviewed: Yes Vitals/I&O/Wt Last Vital Signs Temp 98.6 F 09/04/20 04:00 Pulse 82 09/04/20 14:00 Resp 18 09/04/20 09:15 BP 124/88 09/04/20 09:15 Pulse Ox 93 09/04/20 13:00 09/04/20 09/04/20 09/04/20 06:59 14:59 22:59 Intake Total 250 / 650 Balance 250 / 650 Weight last 48 hrs Weight 146.516 kg Weight 151.046 kg Physical Exam Narrative: EXAM NARRATIVE: General- morbidly obese male, no apparent distress HEENT -grossly unremarkable CVS-S1-S2 regular, no murmur, tachycardia Chest- c bilateral coarse crepitations, bilateral rhonchi diffuse all over lung murguia Abdomen-soft contender nondistended Extremities-no significant edema noted Data : 09/04/20 04:12 09/04/20 04:12 Micro: Microbiology 09/03/20 16:50 Bacterial Antigens - Final Urine Kidney 09/03/20 16:50 Legionella Urinary Antigen - Final Urine,Clean Catch A&P Assessment and plan (1) Hypoxia: Status: Acute (2) Rhabdomyolysis due to severe acute respiratory syndrome coronavirus 2 (SARS-CoV-2) disease: Status: Acute (3) Bilateral pneumonia: Status: Acute (4) Obesity, Class III, BMI 40-49.9 (morbid obesity): Status: Chronic Additional A&P Information Hypoxia secondary COVID-19 pneumonia: PCR positive. Continue remdesivir to finish a 5-day course. Decadron 6 mg IV daily. Vitamin C, zinc. Advair, Spiriva. Oxygen supplementation keeping saturation over 90%. CTA negative for PE. Given elevated D-dimer and morbid obesity patient was started on Eliquis 5 mg twice daily. For now we will continue most likely patient will require Eliquis for 14 days post discharge. Aggressive pulmonary toilet with incentive spirometry and Acapella. Low chances of bacterial superimposed infection. Procalcitonin negative. For now hold off on antibiotics. Home O2 evaluation prior to discharge. Acute mild rhabdomyolysis: Most likely from COVID-19 pneumonia: Resolved. Stop IV fluids as patient is taking orally well. Hypertension Goal blood pressure less than 140/90 mmHg. Continue amlodipine 10 mg oral daily. Morbid Obesity BMI- 46.0 Diet and exercise regiemn after discharge. Check HbA1c, lipid panel, TSH. Patient had a DVT prophylaxis. Regular diet. Insulin sliding scale as patient is on high dose steroids. Protonix for PUD prophylaxis Attestations Medical Necessity Statement*: Requires further hospitalization for management of hypoxia secondary to COVID-19 pneumonia Time Spent in Patient Care: Greater than 35 minutes (>than 50% of time spent in counselling and/or direct pt care on unit) . Coding Level of Care Code Acute Merchant Tailor for [facility] Diagnoses Hypoxia R09.02 Rhabdomyolysis due to severe acute respiratory syndrome coronavirus 2 (SARS-CoV-2) disease U07.1; M62.82 Bilateral pneumonia J18.9 Obesity, Class III, BMI 40-49.9 (morbid obesity) E66.01
[2020-09-04 17:17] LABS: Glucose Point of Care 131 mg/dL (70-110)
[2020-09-04] MEDS: dexamethasone 4 mg/mL INJ 6 MG IVP (20:03)
[2020-09-04 21:38] LABS: Glucose Point of Care 172 mg/dL (70-110)
--- NOTE | 2020-09-04 23:22 | PC.NURSE ---
Patient has no complaints at this time. Will monitor.
[2020-09-05] VITALS (15 sets, daily range): BP systolic 125–176; BP diastolic 79–105; PULSE 84–109; RESP 18–100; TEMP 36.4–37.1; O2SAT 92–97
[2020-09-05 05:28] LABS: Basophils % 0.2 %; Hematocrit 41.5 % (42.0-52.0); Hemoglobin 13.3 g/dL (11.7-16.6); Lymphocytes # 1.2 10^3/uL (0.8-4.8); Lymphocytes % 14.1 %; Mean Corpuscular Hemoglobin 29.4 pg (28.0-34.0); Mean Corpuscular Volume 91.6 fL (80-94); Mean Platelet Volume 10.5 fL (7.4-10.4); Monocytes # 0.4 10^3/uL (0.2-0.9); Neutrophils # 6.85 10^3/uL (1.8-7.7); Nucleated Red Blood Cells % 0 %; Platelet Count 590 10^3/cmm (130-400); Red Blood Count 4.53 10^6/uL (4.1-5.3); Red Cell Distribution Width 12.4 % (12.1-15.1); White Blood Count 8.7 10^3/uL (4.0-10.0)
[2020-09-05] MEDS: remdesivir 100 MG in sodium chloride 0.9% (100 ml) 100 ML IV (05:32)
[2020-09-05 05:42] LABS: D Dimer 0.39 ug/mIFEU (0-0.59)
[2020-09-05 05:52] LABS: Alanine Aminotransferase 43 U/L (0-41); Albumin Level 3.5 g/dL (3.5-5.2); Alkaline Phosphatase 35 IU/L (40-130); Anion Gap 17.7 (5-19); Aspartate Amino Transferase 31 U/L (0-40); Blood Urea Nitrogen 17 mg/dL (6-20); C Reactive Protein 4.5 mg/L (0.0-4.9); Calcium 8.3 mg/dL (8.5-10.5); Carbon Dioxide 25 mmol/L (22-29); Chloride 105 mmol/L (98-107); Creatine Phosphokinase 209 U/L (39-308); Ferritin 943 ng/mL (30-400); Globulin 3.2 g/dL (1.3-4.6); Glucose 179 mg/dL (65-115); NT Pro B Type Natriuretic Pept 78 pg/mL (0-125); Osmolality Calculated 302 mOsm/kg (285-295); Potassium 4.7 mmol/L (3.5-5.1); Sodium 143 mmol/L (136-145); Total Bilirubin 0.4 mg/dL (0.15-1.2); Total Protein 6.7 g/dL (6.6-8.7)
[2020-09-05 06:20] LABS: Erythrocyte Sedimentation Rate 29 mm/hr (0-10)
[2020-09-05 06:52] LABS: Glucose Point of Care 158 mg/dL (70-110)
--- NOTE | 2020-09-05 07:30 | PC.NURSE ---
Pt sitting up in bed eating breakfast and talking to staff. Resp even and non-labored no distress noted. O2 via nc at 2Lpm. No c/o pain or discomfort at the present time. Call light in reach.
[2020-09-05] MEDS: zinc gluconate 50 mg Tablet PO (08:31)
[2020-09-05] MEDS: amlodipine 10 mg Tablet PO (08:31)
[2020-09-05] MEDS: pantoprazole DR 40 mg Tablet PO (08:31)
[2020-09-05] MEDS: apixaban 5 mg Tablet PO ×2 (08:31→20:06)
[2020-09-05] MEDS: cholecalciferol (vitamin D3) 1,000 unit Tablet 2000 UNIT PO (08:31)
[2020-09-05] MEDS: benzonatate 100 mg Capsule PO ×3 (08:31→20:06)
[2020-09-05] MEDS: ascorbic acid 500 mg Tablet 1000 MG PO ×2 (08:32→18:35)
--- NOTE | 2020-09-05 08:39 | P.PN_ITS ---
Subjective Subjective: Interval history: No acute events overnight. Patient doing a lot better. Currently on 2 L saturating 97%. States appetite is good. Working with incentive spirometry flutter valve. Sitting up in bed now. Medications: Reviewed: Yes Vitals/I&O/Wt Last Vital Signs Temp 98.4 F 09/05/20 07:29 Pulse 93 09/05/20 07:33 Resp 18 09/05/20 07:33 BP 148/88 09/05/20 07:33 Pulse Ox 97 09/05/20 07:29 09/04/20 09/05/20 09/05/20 22:59 06:59 14:59 Intake Total 350 / 1350 220 / 1570 500 / 500 Balance 350 / 1350 220 / 1570 500 / 500 Weight last 48 hrs Weight 146.51 kg Weight 146.516 kg Weight 151.046 kg Physical Exam Narrative: EXAM NARRATIVE: General- morbidly obese male, no apparent distress HEENT -grossly unremarkable CVS-S1-S2 regular, no murmur, tachycardia Chest- c bilateral coarse crepitations, bilateral rhonchi diffuse all over lung murguia Abdomen-soft contender nondistended Extremities-no significant edema noted Data : 09/05/20 04:17 09/05/20 04:17 Micro: Microbiology 09/03/20 13:33 MRSA Culture - Final Nose 09/03/20 16:50 Bacterial Antigens - Final Urine Kidney A&P Assessment and plan (1) Hypoxia: Status: Acute (2) Rhabdomyolysis due to severe acute respiratory syndrome coronavirus 2 (SARS-CoV-2) disease: Status: Acute (3) Bilateral pneumonia: Status: Acute (4) Obesity, Class III, BMI 40-49.9 (morbid obesity): Status: Chronic Additional A&P Information Hypoxia secondary COVID-19 pneumonia: Continue remdesivir to finish a 5-day course. Last dose today. Decadron 6 mg IV daily. Vitamin C, zinc. Advair, Spiriva. Oxygen supplementation keeping saturation over 90%. CTA negative for PE. Given elevated D-dimer and morbid obesity patient was started on Eliquis 5 mg twice daily. For now we will continue most likely patient will require Eliquis for 14 days post discharge. Aggressive pulmonary toilet with incentive spirometry and Acapella. Low chances of bacterial superimposed infection. Procalcitonin negative. For now hold off on antibiotics. Home O2 evaluation prior to discharge. Continue to monitor inflammatory markers daily including ferritin, CRP, ESR, fibrinogen. Acute mild rhabdomyolysis: Most likely from COVID-19 pneumonia: Resolved. Stop IV fluids as patient is taking orally well. Hypertension Goal blood pressure less than 140/90 mmHg. Continue amlodipine 10 mg oral daily. Patient persistently tachycardic. Start patient on metoprolol 25 twice daily. Morbid Obesity BMI- 46.0 Diet and exercise regiemn after discharge. Jannet will have a DVT prophylaxis as well. Regular diet. Insulin sliding scale as patient is on high dose steroids. Protonix for PUD prophylaxis Discharge planning: Patient continues to do well can plan to discharge tomorrow after more than chronic 4 hours post last dose of remdesivir. Prior to discha rge patient would need home O2 evaluation. Patient will be discharged on amlodipine and metoprolol. Attestations Medical Necessity Statement*: Requires further hospitalization for management of hypoxia secondary to COVID-19 pneumonia requiring dose of remdesivir today. Time Spent in Patient Care: Greater than 35 minutes (>than 50% of time spent in counselling and/or direct pt care on unit) . Coding Level of Care Code Acute Global Sales Executive for [facility] Diagnoses Hypoxia R09.02 Rhabdomyolysis due to severe acute respiratory syndrome coronavirus 2 (SARS-CoV-2) disease U07.1; M62.82 Bilateral pneumonia J18.9 Obesity, Class III, BMI 40-49.9 (morbid obesity) E66.01
[2020-09-05] MEDS: albuterol 8 gm MDI 2 PUFF INHALATION ×2 (09:50→19:26)
[2020-09-05 10:32] LABS: Glucose Point of Care 166 mg/dL (70-110)
[2020-09-05] MEDS: metoprolol tartrate 25 mg Tablet PO ×2 (15:22→20:06)
[2020-09-05 16:48] LABS: Glucose Point of Care 143 mg/dL (70-110)
[2020-09-05] MEDS: dexamethasone 4 mg/mL INJ 6 MG IVP (20:06)
[2020-09-05 21:27] LABS: Glucose Point of Care 160 mg/dL (70-110)
--- NOTE | 2020-09-05 22:36 | PC.NURSE ---
When removing patient from nasal cannula, oxygen saturation drops to 87 percent. Unable to wean patient from oxygen. Patient is currently on 2 L NC and tolerating well.
[2020-09-06] VITALS (8 sets, daily range): BP systolic 130–138; BP diastolic 77–92; PULSE 93–117; RESP 19–22; TEMP 36.8–37; O2SAT 86–98
--- NOTE | 2020-09-06 06:00 | XR_ITS ---
WS: [id number] Portable AP upright chest, 09/06/2020 Clinical Data: covid Comparison: Portable chest, 09/04/2020. Findings: The bilateral pulmonary opacities remain the same. No nodules, masses or effusions are seen . The heart is normal. No pneumothorax is present. Monitor leads are on the chest wall. XR/XR chest 1V portable [id number] Impression: No change in bilateral pulmonary opacities.
[2020-09-06 06:10] LABS: C Reactive Protein 2.1 mg/L (0.0-4.9); Creatine Phosphokinase 177 U/L (39-308); NT Pro B Type Natriuretic Pept 58 pg/mL (0-125)
[2020-09-06 06:47] LABS: Glucose Point of Care 163 mg/dL (70-110)
[2020-09-06 07:17] LABS: Erythrocyte Sedimentation Rate 28 mm/hr (0-10)
[2020-09-06 07:58] LABS: Ferritin 947 ng/mL (30-400)
[2020-09-06] MEDS: amlodipine 10 mg Tablet PO (08:28)
[2020-09-06] MEDS: metoprolol tartrate 25 mg Tablet PO (08:28)
[2020-09-06] MEDS: pantoprazole DR 40 mg Tablet PO (08:28)
[2020-09-06] MEDS: cholecalciferol (vitamin D3) 1,000 unit Tablet 2000 UNIT PO (08:28)
[2020-09-06] MEDS: apixaban 5 mg Tablet PO (08:29)
[2020-09-06] MEDS: albuterol 8 gm MDI 2 PUFF INHALATION (09:02)
[2020-09-06] MEDS: zinc gluconate 50 mg Tablet PO (09:47)
[2020-09-06] MEDS: ascorbic acid 500 mg Tablet 1000 MG PO (09:47)
[2020-09-06] MEDS: benzonatate 100 mg Capsule PO (09:47)
[2020-09-06 10:51] LABS: Glucose Point of Care 145 mg/dL (70-110)
--- NOTE | 2020-09-06 11:32 | P.DS_ITS ---
Discharge Providers Date of Admission: 09/02/20 00:05 Date of Discharge: September 06, 2020 Attending Provider at Admission: Makeda Kam MD Attending Provider at Discharge: Uriel Theodore MD Primary Care Provider: Sydnie Farrell MD Diagnoses at Discharge Discharge Diagnosis (1) Hypoxia: Status: Acute (2) Rhabdomyolysis due to severe acute respiratory syndrome coronavirus 2 (SARS-CoV-2) disease: Status: Acute (3) Bilateral pneumonia: Status: Acute (4) Obesity, Class III, BMI 40-49.9 (morbid obesity): Status: Chronic Reason for Visit Reason for Visit: COVID EXPOSURE:COUGH, DIFF BREATHING Hospital Course Hospital Course Paul Crouch is a 24 year old male who presented to the emergency room with chief complaint of increasing difficulty breathing and cough. His mom had been positive for Covid. He started having fevers up to as high as 103.8 around 6 days ago. He then began having upper respiratory congestion followed by chest congestion and frequent cough. He began to get short of breath with exertion a couple of days ago and then symptoms progressed. He denies loss of taste or smell. He has had general malaise. No vomiting or diarrhea. No chest pain. He has a BMI of 46 but no other risk factors for severe disease. He did not have Covid last year. He did not get vaccinated. Patient went to the hospital for for management of hypoxia because of COVID-19 pneumonia. He received treatment with IV remdesivir, dexamethasone and radiation treatment. He tolerated treatment well. His inflammatory markers gradually improved. His oxygen requirement is improving as well. Currently he is requiring 2 L oxygen supplementation on ambulation to maintain saturation over 90% while at rest he is on room air maintaining 94%. During hospitalization he was found to have elevated blood pressures for which he required amlodipine and metoprolol. Is been discharged in medically stable condition advised to take Advair and Spiriva for relation treatment for next 2 weeks, Eliquis is a blood thinner for next 2 weeks, dexamethasone which is a steroid for next 2 weeks. He is to follow-up with a primary care provider within next 1 to 3 days. He is to take amlodipine and metoprolol for life. He is to follow-up with his primary care provider at least once a year for further adjustment of antihypertensives. He should also follow with primary care provider for possible sleep study for sleep apnea. Physical Exam Narrative: EXAM NARRATIVE: General- morbidly obese male, no apparent distress HEENT -grossly unremarkable CVS-S1-S2 regular, no murmur, tachycardia Chest- c bilateral coarse crepitations, bilateral rhonchi diffuse all over lung murguia Abdomen-soft contender nondistended Extremities-no significant edema noted Discharge Data Data Completed and Pending: Completed Studies During Hospitalization Category Date Time Status CT angio chest PE protcl [id number] Rout ine Cat Scan 09/03/20 08:30 Completed XR chest 1V kumar ble 34856 Q48H Exams 09/04/20 06:00 Completed XR chest 1V kumar ble 04306 Q48H Exams 09/06/20 06:00 Completed XR chest 1V kumar ble [id number] Stat Exams 09/01/20 18:03 Completed Pending at discharge Category Date Time Status XR chest 1V kumar ble 58423 Q48H Exams 09/08/20 06:00 Ordered Blood Culture Sta t Lab 09/01/20 20:00 Results Labs from last 24 hours 09/06/20 09/06/20 09/06/20 10:40 06:33 05:16 ESR 28 H D-Dimer POC Glucose 145 H 163 H Ferritin Creatine Kinase C-Reactive Protein NT-Pro-B Natriuret Pep 09/06/20 09/06/20 09/05/20 05:16 05:16 19:07 ESR D-Dimer 0.50 POC Glucose 160 H Ferritin 947 H Creatine Kinase 177 C-Reactive Protein 2.1 NT-Pro-B Natriuret Pep 58 09/05/20 16:33 ESR D-Dimer POC Glucose 143 H Ferritin Creatine Kinase C-Reactive Protein NT-Pro-B Natriuret Pep Addt'l Data from Hospital Stay: Laboratory Results WBC 8.7 10^3/uL (4.0- 10.0) 09/05/20 04:17 RBC 4.53 10^6/uL (4.1 -5.3) 09/05/20 04:17 Hgb 13.3 g/dL (11.7-1 6.6) 09/05/20 04:17 Hct 41.5 % (42.0-52.0 ) L 09/05/20 04:17 MCV 91.6 fL (80-94) 09/05/20 04:17 MCH 29.4 pg (28.0-34. 0) 09/05/20 04:17 MCHC 32.0 g/dL (30.0-3 6.0) 09/05/20 04:17 RDW 12.4 % (12.1-15.1 ) 09/05/20 04:17 Plt Count 590 10^3/cmm (130 -400) H 09/05/20 04:17 MPV 10.5 fL (7.4-10.4 ) H 09/05/20 04:17 Neut % (Auto) 79.0 % 09/05/20 04:17 Lymph % (Auto) 14.1 % 09/05/20 04:17 [place] % (Auto) 5.0 % 09/05/20 04:17 Eos % (Auto) 0.0 % 09/05/20 04:17 Baso % (Auto) 0.2 % 09/05/20 04:17 Neut # (Auto) 6.85 10^3/uL (1.8 -7.7) 09/05/20 04:17 Lymph # (Auto) 1.2 10^3/uL (0.8- 4.8) 09/05/20 04:17 [place] # (Auto) 0.4 10^3/uL (0.2- 0.9) 09/05/20 04:17 Eos # (Auto) 0.0 10^3/uL (0.0- 0.8) 09/05/20 04:17 Baso # (Auto) 0.0 10^3/uL (0.0- 0.1) 09/05/20 04:17 Nucleated RBC % (a uto) 0 % 09/05/20 04:17 Nucleated RBCs # 0.0 /100WBC 09/05/20 04:17 ESR 28 mm/hr (0-10) H 09/06/20 05:16 PT 14.50 SECONDS (12 .1-14.9) 09/03/20 06:53 INR 1.10 (0.8-1.2) 09/03/20 06:53 APTT 29.6 SECONDS (23. 9-36.7) 09/03/20 06:53 Fibrinogen 522 mg/dL (174-49 8) H 09/02/20 04:38 D-Dimer 0.50 ug/mIFEU (0- 0.59) 09/06/20 05:16 Specimen Type Arterial 09/01/20 18:47 Sample Site Radial, left 09/01/20 18:47 ABG pH 7.48 (7.35-7.45) H 09/01/20 18:47 ABG pCO2 31.3 mmHg (35-45) L 09/01/20 18:47 ABG pO2 65.8 mmHg (80.0-1 00.0) L 09/01/20 18:47 ABG HCO3 23.5 mmol/L (22-2 6) 09/01/20 18:47 ABG Base Excess 0.9 mmol/L (-2.0- 2.0) 09/01/20 18:47 Gabo Test Pos 09/01/20 18:47 Hematocrit 45.7 % (42-52) 09/01/20 18:47 O2 Delivery Device Nc 09/01/20 18:47 O2 Liters/Min 2.0 % 09/01/20 18:47 FiO2 28.0 % 09/01/20 18:47 Manager Camp ID Amh 09/01/20 18:47 Sodium 143 mmol/L (136-1 45) 09/05/20 04:17 Potassium 4.7 mmol/L (3.5-5 .1) 09/05/20 04:17 Chloride 105 mmol/L (98-10 7) 09/05/20 04:17 Carbon Dioxide 25 mmol/L (22-29) 09/05/20 04:17 Anion Gap 17.7 (5-19) 09/05/20 04:17 BUN 17 mg/dL (6-20) 09/05/20 04:17 Creatinine 0.7 mg/dL (0.7-1. 2) 09/05/20 04:17 GFR Calculation 141.0 mL/min (90- 130) H 09/05/20 04:17 Glucose 179 mg/dL (65-115 ) H 09/05/20 04:17 POC Glucose 145 mg/dL (70-110 ) H 09/06/20 10:40 Estimat Average Gl ucose 117 09/03/20 06:53 Hemoglobin A1c 5.7 % (4.0-6.0) 09/03/20 06:53 Calculated Osmolal ity 302 mOsm/kg (285- 295) H 09/05/20 04:17 Lactic Acid 1.3 mmol/L (0.5-2 .2) 09/01/20 20:00 Calcium 8.3 mg/dL (8.5-10 .5) L 09/05/20 04:17 Phosphorus 3.5 mg/dL (2.5-4. 5) 09/03/20 06:53 Magnesium 2.5 mg/dL (1.7-2. 3) H 09/03/20 06:53 Iron 41 ug/dL (59-158) L 09/03/20 06:53 TIBC 189 mcg/dl 09/03/20 06:53 % Saturation 21.6 % (20-50) 09/03/20 06:53 Unsat Iron Binding 148 ug/dL (112-34 7) 09/03/20 06:53 Ferritin 947 ng/mL (30-400 ) H 09/06/20 05:16 Total Bilirubin 0.4 mg/dL (0.15-1 .2) 09/05/20 04:17 AST 31 U/L (0-40) 09/05/20 04:17 ALT 43 U/L (0-41) H 09/05/20 04:17 Alkaline Phosphata se 35 IU/L (40-130) L 09/05/20 04:17 Lactate Dehydrogen ase 698 U/L (135-225) H 09/01/20 20:00 Creatine Kinase 177 U/L (39-308) 09/06/20 05:16 C-Reactive Protein 2.1 mg/L (0.0-4.9 ) 09/06/20 05:16 NT-Pro-B Natriuret Pep 58 pg/mL (0-125) 09/06/20 05:16 Total Protein 6.7 g/dL (6.6-8.7 ) 09/05/20 04:17 Albumin 3.5 g/dL (3.5-5.2 ) 09/05/20 04:17 Globulin 3.2 g/dL (1.3-4.6 ) 09/05/20 04:17 Triglycerides 70 mg/dL (0-150) 09/04/20 04:12 Cholesterol 98 mg/dL (0-200) 09/04/20 04:12 LDL Cholesterol, C alc 59 mg/dL (50-129) 09/04/20 04:12 Total VLDL Cholest jewels 14 mg/dL (0-30) 09/04/20 04:12 HDL Cholesterol 25 mg/dL (60-100) L 09/04/20 04:12 Cholesterol/HDL Ra jair 3.92 mg/dL (1.0-5 .00) 09/04/20 04:12 Procalcitonin 0.36 ng/mL (0-0.5 ) 09/03/20 06:53 TSH 1.50 uIU/mL (0.27 -4.20) 09/03/20 06:53 Urine Color Yellow (Yellow) 09/03/20 16:50 Urine Appearance Clear (CLEAR) 09/03/20 16:50 Urine pH 6.5 (5-7) 09/03/20 16:50 Ur Specific Gravit y 1.010 (1.005-1.0 30) 09/03/20 16:50 Urine Protein 2+ (Negative) H 09/03/20 16:50 Urine Glucose (UA) Norm (Normal) 09/03/20 16:50 Urine Ketones 1+ (Negative) H 09/03/20 16:50 Urine Blood 2+ (Negative) H 09/03/20 16:50 Urine Nitrate Negative (Negati ve) 09/03/20 16:50 Urine Bilirubin Neg (Negative) 09/03/20 16:50 Urine Urobilinogen 1 mg/dL (Negative ) H 09/03/20 16:50 Ur Leukocyte Vivienne ase Trace (Negative) H 09/03/20 16:50 Urine RBC 0-4 /hpf (0-2) H 09/03/20 16:50 Urine WBC 0-4 /hpf (0-5) H 09/03/20 16:50 Ur Squamous Epith Cells 0-4 /hpf (0-5) H 09/03/20 16:50 Amorphous Sediment Not Reportable 09/03/20 16:50 Urine Bacteria Trace /hpf (NONE) 09/03/20 16:50 Urine Mucus 2+ /hpf 09/03/20 16:50 Nasal/Oral COVID-1 9 PCR Cancelled 09/01/20 20:00 Influenza Type A A g Negative (Negati ve) 09/01/20 20:15 Influenza Type B A g Negative (Negati ve) 09/01/20 20:15 SARS-CoV-2 RNA (RT -PCR) Detected (NOT DE TECTED) A 09/01/20 20:00 SARS-CoV-2 Ag (Rap id) Negative (Negati ve) 09/01/20 20:00 Impressions Chest X-Ray 09/06/20 06:00 Impression: No change in bilateral pulmonary opacities. CTA chest: IMPRESSION: 1. Limited evaluation of the pulmonary arteries due to body habitus. No evidence of proximal pulmonary embolus. 2. Bilateral hazy groundglass perihilar infiltrates extending into the upper and lower lobes suspicious for COVID19 pneumonia 3. Hepatomegaly with diffuse fatty infiltration of the liver Vitals: Last Vital Signs Temp 98.6 F 09/06/20 08:00 Pulse 110 H 09/06/20 09:08 Resp 20 H 09/06/20 09:04 BP 130/87 09/06/20 08:00 Pulse Ox 91 09/06/20 11:31 Discharge Plan Discharge Patient Disposition: Home Condition: Stable Prescriptions: New Advair Diskus 250-50 mcg/dose Blister With Device 1 puff inhalation BID.RESPIRATORY 14 Days Qty: 28 RF: 0 Vitamin C 500 mg Tablet 1,000 mg PO BID 30 Days Qty: 120 RF: 0 amlodipine 10 mg Tablet 10 mg PO DAILY Qty: 30 RF: 0 pantoprazole 40 mg Tablet,Delayed Release (Dr/Ec) 40 mg PO DAILY 30 Days Qty: 30 RF: 0 zinc gluconate 50 mg Tablet 50 mg PO DAILY 30 Days Qty: 30 RF: 0 metoprolol tartrate 25 mg Tablet 25 mg PO BID@0900,2100 30 Days Qty: 60 RF: 0 Spiriva with HandiHaler 18 mcg Capsule, W/Inhalation Device 18 mcg inhalation DAILY.RESPIRATORY 14 Days Qty: 14 RF: 0 Eliquis 5 mg Tablet 5 mg PO BID@0900,2100 14 Days Qty: 28 RF: 0 dexamethasone 6 mg tablet 6 mg PO DAILY Qty: 10 RF: 0 benzonatate 100 mg Capsule 100 mg PO TID PRN (Reason: cough) Qty: 10 RF: 0 Continued NyQuil 7.5-60-30-1,000 mg/30 mL Liquid 30 ml PO BEDTIME PRN (Reason: sleep/cough) RF: 0 Tylenol Extra Strength 500 mg Tablet 500 - 1,000 mg PO PRN RF: 0 ibuprofen 200 mg Tablet 400 mg PO PRN RF: 0 Discharge Orders: Discharge Order (Routine); Ordered 09/06/20 Ordered By: Uriel Theodore Discharge Diet: Cardiac Discharge Activity: Resume usual activity Patient Instructions: Opioid Safety Activity Restrictions/Additional Instructions: Primary care provider within next 1 to 3 days. You will be on elation treatment with Advair and Spiriva for next 2 weeks, Eliquis which is a blood thinner for next 2 weeks, dexamethasone which is a steroid for next 10 days. You will be on amlodipine and metoprolol which of her blood pressures going forward. You should follow up with a primary provider at least once a year for life for further management of antihypertensives. Please make sure you are on contact isolation for next 2 weeks. Please try to avoid going into public spaces and if you need to please make sure that you are wearing a mask. Please maintain 6 feet social distancing. You should also try to get sleep study with primary care provider for possible sleep apnea. If at home you have increased difficulty in breathing, fever more than 101 Fahrenheit please come to the ER. Discharge Attestations Time Spent in Discharge Care*: greater than 30 min Specific Discharge Activities: educating patient, discussing with pcp/other providers, discussing with bilingual patient support caseworker/social workers/dc planners, documenting/other paperwork and evaluating patient/reviewing data Status at Discharge: Cognitive status at discharge: cognitively intact , Behavioral status at discharge: cooperative , Functional status at discharge: independent ambulation Overall status at discharge: patient is progressing back to baseline Quality Metrics Clinical Quality Measures During this hospital stay, did patient experience: None Coding Level of Care Code Acute [facility] note Diagnoses Hypoxia R09.02 Rhabdomyolysis due to severe acute respiratory syndrome coronavirus 2 (SARS-CoV-2) disease U07.1; M62.82 Bilateral pneumonia J18.9 Obesity, Class III, BMI 40-49.9 (morbid obesity) E66.01
--- NOTE | 2020-09-06 14:55 | PC.NURSE ---
discharge instructions given and explained.pt verb understanding of instructions.prescriptions filled by [facility] via meds to beds program.discharged ambulatory to exit at this time.pt's grandmother to drive pt home
== END 2020-09-06 14:55 | disposition home or self-care (01) | DRG 177 ==
LOC: ER 17:54 → CSU 09-02 10:06
PROVIDERS: Hospitalist; Admitting Provider Hospitalist; Emergency Provider Family Medicine; PCP Family Medicine; Visit Provider Student in an Organized Health Care Education/Training Program
DX: U07.1 COVID-19 (principal); J12.82 Pneumonia due to coronavirus disease 2019; J80 Acute respiratory distress syndrome; Z68.42 Body mass index [BMI] 45.0-49.9, adult; M62.82 Rhabdomyolysis; E66.01 Morbid (severe) obesity due to excess calories; I10 Essential (primary) hypertension
CPT/HCPCS: 36415; 36416; 36600; 71045; 71275; 80048; 80053; 80061; 81001; 82550; 82728; 82803; 82962; 83036; 83540; 83550; 83605; 83615; 83735; 83880; 84100; 84145; 84443; 85025; 85378; 85384; 85610; 85651; 85730; 86140; 86403; 87040; 87070; 87205; 87426; 87449; 87635; 87641; 87804; 94640; 94664; 96365; 96372; 96375; 99285; J1100; J1650; J1815; J3535; J7030; Q9967

== ENCOUNTER → 2022-01-28 10:12 | Outpatient (BNVA) | payer OTHER, SELFPAY | PROVIDERS: PCP Family Medicine; Visit Provider Nurse Practitioner Family | DX: J02.9 Acute pharyngitis, unspecified (principal); R05.9 Cough, unspecified | CPT/HCPCS: 87400; 87880 ==